=== PATIENT | male | born 1990 | race African-American/Black ===

== ENCOUNTER 2016-08-28 23:59 | Emergency (ER) | payer OTHER ==
--- NOTE | ~2016-08-28 | CR282 ---
[facility] A Service of [facility] RADIOLOGY TEXT RESULTS PATIENT: NELSON GRANADOS LOCATION: [facility] : [birth year] UNIT #: [id number] AGE: [address]: SHORTY MELCHOR APRN SEX: M ORDER DR: [id number] [facility] [address] [place], [place] [address] [id number] P MR#: [id number] Acc #: [id number] NAME: NELSON GRANADOS : 1990 SEX: M STUDY DATE/TIME: 08/28/2016 22:50 UNIT: [facility] ROOM: STUDY DESCRIPTION: CR Wrist Min 3 View Rt Ordering Physician: Nathan Eldridge M.D. Primary Care Physician: Primary Care Physician No MEDICAL IMAGING REPORT This report is preliminary unless electronic signature is present EXAM Right wrist, 08/28/2016 INDICATION 25-year-old male with posterior wrist pain and swelling that began yesterday after a skateboard fall. TECHNIQUE 3 views. No comparisons. FINDINGS There is dorsal soft tissue swelling but no underlying fracture. Alignment preserved. IMPRESSION Dorsal soft tissue swelling, otherwise negative. Dictated by... Travis Christiansen M.D. THIS IS AN ELECTRONICALLY VERIFIED REPORT Travis Christiansen M.D. at 08/29/2016 6:29 AM Meir TD: 08/29/2016 00:23 JOB #: [id number] MEDICAL IMAGING REPORT Page 1 of 1 COPY
== END 2016-08-29 01:51 | disposition home or self-care (01) ==
LOC: CED 23:59
DX: S63.501A Unspecified sprain of right wrist, initial encounter (principal); F17.210 Nicotine dependence, cigarettes, uncomplicated; F90.9 Attention-deficit hyperactivity disorder, unspecified type; V00.131A Fall from skateboard, initial encounter; Y92.830 Public park as the place of occurrence of the external cause
CPT/HCPCS: 73110; 99283